=== PATIENT | female | born 2000 | race Caucasian/White ===

== ENCOUNTER 2025-08-22 23:26 | Emergency (ER) | payer OTHER, SELFPAY ==
--- OUTSIDE RECORDS SUMMARY | 2025-08-22 23:28 | XMS_ITS | Data Portability ---
Author Organization [facility] Address [address] [place] [address] Care Team Providers Care Supervisor Claims Name Role Phone CYNTHIA SAAVEDRA Primary Care Provider [phone] Assessment No assessment recorded. Plan of Treatment Reminders Order Date Submit Date Provider Last Modified By Organization Details Last Modified Time Details Appointments None recorded. Lab HUBER (antinuclea r antibodies) panel, serum 2022 023 [facility] (Lab), [address] [place], [address], 3 17:04:37 TSH, serum or plasma 2022 023 [facility] (Lab), [address] [place], [address], 3 17:04:35 thyrotropin ab, qualitative , serum 2022 023 [facility] (Lab), [address] [place], [address], 3 17:04:37 CBC w/ auto diff 2022 023 [facility] (Lab), [address] [place], [address], 3 17:04:34 CMP, serum or plasma 2022 023 [facility] (Lab), [address] [place], [address], 3 17:04:35 prolactin, serum 2022 023 [facility] (Lab), [address], [place], [address], 3 17:04:36 Referral None recorded. Procedures None recorded. Surgeries None recorded. Imaging US, obstetric, transvagina l [address], [address], [address], [place], [address], 5 20:37:14 US, obstetric, transvagina l [address] [facility] [address], [place], [address], 22:46:33 Medication Orders NuvaRing 0.12 mg-0.015 mg/24 hr vaginal 2022 023 [facility] [id number] [facility], [address], [place], [address], 15:15:08 Patient TargetsNo targets recorded. Patient InstructionsNo instructions recorded. Reason for Referral None Reported. Results Created Date Observation Date Name Description Value Unit Range Abnormal Flag Note LastModifiedBy Organization Detail LastModifiedTime 07/10/2007/10/2023 CBC W/DIF F WBC 8.7 10'3/ uL 3.6-10 .2 Not Available [facility] (Lab) [address], [place], [address], 07/19/2023 17:04:34 07/10/2007/10/2023 CBC W/DIF F RBC 5.27 10'6/ uL (based on docume nted legal sex) 4.10-5 .30 Not Available [facility] (Lab) [address], [place], [address], 07/19/2023 17:04:34 07/10/20 23 07/10/2023 CBC W/DIF F HGB 14.7 g/dL (based on docume nted legal sex) 11.9-1 5.8 Not Available [facility] (Lab) [address], [place], [address], 07/19/2023 17:04:34 07/10/20 23 07/10/2023 CBC W/DIF F HCT 46.0 % (based on docume nted legal sex) 37.4-4 8.3 Not Available [facility] (Lab) [address], [place], [address], 07/19/2023 17:04:34 07/10/20 23 07/10/2023 CBC W/DIF F MCV 87.3 fL 82.0-9 9.0 Not Available [facility] (Lab) [address], [place], [address], 07/19/2023 17:04:34 07/10/20 23 07/10/2023 CBC W/DIF F MCH 27.9 pg 27.0-3 3.0 Not Available [facility] (Lab) [address], [place], [address], 07/19/2023 17:04:34 07/10/20 23 07/10/2023 CBC W/DIF F MCHC 32.0 g/dL 32.0-3 6.0 Not Available [facility] (Lab) [address], [place], [address], 07/19/2023 17:04:34 07/10/20 23 07/10/2023 CBC W/DIF F RDW 13.5 % 11.0-1 5.0 Not Available [facility] (Lab) [address], [place], [address], 07/19/2023 17:04:34 07/10/20 23 07/10/2023 CBC W/DIF F plt 386 10'3/ uL 150-45 0 Not Available [facility] (Lab) [address] [facility], [place], [address], 07/19/2023 17:04:34 07/10/20 23 07/10/2023 CBC W/DIF F MPV 10.6 fL 9.8-12 .7 Not Available [facility] (Lab) [address] [facility], [place], [address], 07/19/2023 17:04:34 07/10/20 23 07/10/2023 CBC W/DIF F NRBC's 0.0 % 0 Not Available [facility] (Lab) [address] [facility], [place], [address], 07/19/2023 17:04:34 07/10/20 23 07/10/2023 CBC W/DIF F absolute NRBCs 0.0 10'3/ uL 0 Not Available [facility] (Lab) [address] [facility], [place], [address], 07/19/2023 17:04:34 07/10/20 23 07/10/2023 CBC W/DIF F neutrophils 59.6 % 37.0-7 2.0 Not Available [facility] (Lab) [address] [facility], [place], [address], 07/19/2023 17:04:34 07/10/20 23 07/10/2023 CBC W/DIF F lymphocytes 33.4 % 16.0-4 8.0 Not Available [facility] (Lab) [address] [facility], [place], [address], 07/19/2023 17:04:34 07/10/20 23 07/10/2023 CBC W/DIF F monocytes 5.2 % 4.0-14 .0 Not Available [facility] (Lab) [address] [facility], [place], [address], 07/19/2023 17:04:34 07/10/20 23 07/10/2023 CBC W/DIF F eosinophils 1.3 % 0.0-9. 0 Not Available [facility] (Lab) [address] [facility], [place], [address], 07/19/2023 17:04:34 07/10/20 23 07/10/2023 CBC W/DIF F basophils 0.2 % 0.0-2. 0 Not Available [facility] (Lab) [address] [facility], [place], [address], 07/19/2023 17:04:34 07/10/20 23 07/10/2023 CBC W/DIF F immature granulocytes 0.3 % no define d refere nce range Not Available [facility] (Lab) [address] [facility], [place], [address], 07/19/2023 17:04:34 07/10/20 23 07/10/2023 CBC W/DIF F absolute neutrophils 5.2 10'3/ uL 1.1-6. 0 Not Available [facility] (Lab) [address] [facility], [place], [address], 07/19/2023 17:04:34 07/10/20 23 07/10/2023 CBC W/DIF F absolute lymphocytes 2.9 10'3/ uL 0.7-3. 4 Not Available [facility] (Lab) [address] [facility], [place], [address], 07/19/2023 17:04:34 07/10/20 23 07/10/2023 CBC W/DIF F absolute monocytes 0.5 10'3/ uL 0.3-1. 0 Not Available [facility] (Lab) [address] [facility], [place], [address], 07/19/2023 17:04:34 07/10/20 23 07/10/2023 CBC W/DIF F absolute eosinophils 0.1 10'3/ uL 0.0-0. 6 Not Available [facility] (Lab) [address] [facility], [place], [address], 07/19/2023 17:04:34 07/10/20 23 07/10/2023 CBC W/DIF F absolute basophils 0.0 10'3/ uL 0.0-0. 1 Not Available [facility] (Lab) [address], [place], [address], 07/19/2023 17:04:34 07/10/20 23 07/10/2023 CBC W/DIF F absolute immature granulocytes 0.0 10'3/ uL 0.00-0 .10 023 3:45 AM: P indic ates parti al resul ts on a panel have been relea sed. Addit ional resul ts will follo w. 023 3:45 AM: This resul t has been final verif ied. No addit ional or rodriguez ed resul ts are expec pebbles. Not Available [facility] (Lab) [address] [facility], [place], [address], 07/19/2023 17:04:34 07/10/20 23 07/10/2023 CMP WITH BUN/C REAT RATIO sodium 136 mmol/ L 133-14 6 Not Available [facility] (Lab) [address] [facility], [place], [address], 07/19/2023 17:04:34 07/10/20 23 07/10/2023 CMP WITH BUN/C REAT RATIO potassium 4.1 mmol/ L 3.5-5. 1 Not Available [facility] (Lab) [address] [place], [address], 07/19/2023 17:04:34 07/10/20 23 07/10/2023 CMP WITH BUN/C REAT RATIO chloride 107 mmol/ L 98-107 Not Available [facility] (Lab) [address] [place], [address], 07/19/2023 17:04:34 07/10/20 23 07/10/2023 CMP WITH BUN/C REAT RATIO carbon dioxide 21 mmol/ L 21-31 Not Available [facility] (Lab) [address], [place], [address], 07/19/2023 17:04:34 07/10/20 23 07/10/2023 CMP WITH BUN/C REAT RATIO anion gap 8 mmol/ L 4-13 Not Available [facility] (Lab) [address] [facility], [place], [address], 07/19/2023 17:04:34 07/10/20 23 07/10/2023 CMP WITH BUN/C REAT RATIO blood urea nitrogen 12 mg/dL 7-25 Not Available [facility] (Lab) [address] [facility], [place], [address], 07/19/2023 17:04:34 07/10/20 23 07/10/2023 CMP WITH BUN/C REAT RATIO creatinine 0.86 mg/dL 0.60-1 .30 Not Available [facility] (Lab) [address] [facility], [place], [address], 07/19/2023 17:04:34 07/10/20 23 07/10/2023 CMP WITH BUN/C REAT RATIO egfrcr (CKD-epi 2020) >90 mL/mi n/1.7 3_m2 >=60 Not Available [facility] (Lab) [address] [facility], [place], [address], 07/19/2023 17:04:34 07/10/20 23 07/10/2023 CMP WITH BUN/C REAT RATIO BUN/creatini ne ratio 14.0 . 10.0-2 2.0 Not Available [facility] (Lab) [address] [facility], [place], [address], 07/19/2023 17:04:34 07/10/20 23 07/10/2023 CMP WITH BUN/C REAT RATIO calcium 9.0 mg/dL 8.3-10 .5 Not Available [facility] (Lab) [address] [facility], [place], [address], 07/19/2023 17:04:34 07/10/20 23 07/10/2023 CMP WITH BUN/C REAT RATIO glucose 93 mg/dL 70-100 Not Available [facility] (Lab) [address] [facility], [place], [address], 07/19/2023 17:04:34 07/10/20 23 07/10/2023 CMP WITH BUN/C REAT RATIO protein, total 7.2 g/dL 6.4-8. 3 Not Available [facility] (Lab) [address], [place], [address], 07/19/2023 17:04:34 07/10/20 23 07/10/2023 CMP WITH BUN/C REAT RATIO albumin 4.3 g/dL 3.5-5. 0 Not Available [facility] (Lab) [address], [place], [address], 07/19/2023 17:04:34 07/10/20 23 07/10/2023 CMP WITH BUN/C REAT RATIO ALT 12 units /L 9-43 Not Available [facility] (Lab) [address] [facility], [place], [address], 07/19/2023 17:04:34 07/10/20 23 07/10/2023 CMP WITH BUN/C REAT RATIO alkaline phosphatase 58 units /L 34-104 Not Available [facility] (Lab) [address], [place], [address], 07/19/2023 17:04:34 07/10/20 23 07/10/2023 CMP WITH BUN/C REAT RATIO AST 13 units /L 13-39 Not Available [facility] (Lab) [address] [facility], [place], [address], 07/19/2023 17:04:34 07/10/20 23 07/10/2023 CMP WITH BUN/C REAT RATIO bilirubin, total 0.4 mg/dL 0.2-1. 2 Not Available [facility] (Lab) [address] [place], [address], 07/19/2023 17:04:34 07/10/20 23 07/10/2023 TSH, REFLE X FREE T4 TSH 2.43 uIU/m L 0.30-5 .33 Not Available [facility] (Lab) [address] [facility], [place], [address], 07/19/2023 17:04:35 07/10/20 23 07/10/2023 PROLA CTIN prolactin, total 25.80 NG/mL 4.79-2 3.30 high This assay was perfo rmed using [employer] n reage nts and test kits. Value s obtai jame with other assay metho ds or kits canno t be used inter rodriguez eably . Not Available [facility] (Lab) [address] [facility], [place], [address], 07/19/2023 17:04:36 07/10/20 23 07/10/2023 DNA (DS) ANTIB ALEJANDRO dsdna antibody 3 IU/mL 0-4 Not Available [facility] (Lab) [address] [facility], [place], [address], 07/19/2023 17:04:36 07/10/20 23 07/10/2023 DNA (DS) ANTIB ALEJANDRO dsdna antibody interpretati on Negati ve negati ve Not Available [facility] (Lab) [address] [facility], [place], [address], 07/19/2023 17:04:36 07/10/20 23 07/10/2023 HUBER SCREE N / REFLE X TITER / DS-DN A anti-nuclear antibody Positi ve negati ve abnormal The HUBER scree n is posit jovani. Addit ional testi ng for DS-DN A Antib alejandro to follo w. HUBER titer s and patte rns are perfo rmed using an immun ofluo resce nce assay techn ology . Follo w up testi ng for posit jovani speci mens, if requi red, is perfo rmed using multi plex bead techn ology . Not Available [facility] (Lab) [address], [place], [address], 07/19/2023 17:04:37 07/10/20 23 07/10/2023 HUBER SCREE N / REFLE X TITER / DS-DN A HUBER titer 1:320 (none) abnormal Not Available [facility] (Lab) [address] [facility], [place], [address], 07/19/2023 17:04:37 07/10/20 23 07/10/2023 HUBER SCREE N / REFLE X TITER / DS-DN A HUBER pattern Diffus e (none) abnormal May be sugge stive of Syste cole Lupus Eryth emato saurabh. Not Available [facility] (Lab) [address], [place], [address], 07/19/2023 17:04:37 07/10/20 23 07/10/2023 TSH ANTIB ALEJANDRO TSH antibody NEGATI VE negati ve This test was devel oped and its kate tical perfo rmanc e vi cteri stics have been deter mined by [facility] Anthony maciel [place]i t[place] . It has not been clear ed or appro niya by FDA. This assay has been valid ated pursu ant to the CLIA regul ation s and is used for clini brigido purpo ses. Perfo rming Organ izati on Infor matmel n: Site ID: [id number] Name: [facility]/Real matthieu C-S an [place] , Addre ss: [id number] [facility] [place] [address] Direc tor: Norah iverson MD,Ph D,URI Not Available [facility] (Lab) [address] [facility], [place], [address], 07/19/2023 17:04:37 12/19/1912/19/2024 TYPE/ RH/SC REEN ABO/Rh type O POS Not Available [facility] (Lab) [address] [facility], [place], [address], 12/21/2024 01:31:30 12/19/19 25 12/19/2024 TYPE/ RH/SC REEN antibody screen NEG Not Available [facility] (Lab) [address], [place], [address], 12/21/2024 01:31:30 12/19/1912/19/2024 TYPE/ RH/SC REEN exp date 2024 23:59 Not Available [facility] (Lab) [address] [facility], [place], [address], 12/21/2024 01:31:30 12/19/1912/19/2024 BHCG, QUANT ITATI VE B-HCG 23485. 0 mIU/m L 0.0-4. 9 high This assay was perfo rmed using [employer] n reage nts and test kits. Value s obtai jame with other assay metho ds or kits canno t be used inter rodriguez eably . Refer ence Range s: Non-p regna nt, preme nopau joanne women : 0.0-4 .9 mIU/m L Postm enopa usal women : 0.0-7 .0 mIU/m L Martha l Pregn di: Gesta dania l Age bHCG Conc. - mIU/m L 3 Weeks 5.8 - 71.7 4 Weeks 9.5 - 750 5 Weeks 217-7 138 6 Weeks 158 - 31,79 5 7 Weeks 3,697 - 162,5 63 8 Weeks 32,06 5 - 149,5 71 9 Weeks 63,80 3 - 151,4 10 10 Weeks 46,50 9 - 186,9 77 12 Weeks 27,83 2 - 210,6 12 14 Weeks 13,95 0 - 62,53 0 15 Weeks 12,03 9 - 70,97 1 16 Weeks 9,040 - 56,45 1 17 Weeks 8,175 - 55,86 8 18 Weeks 8,099 - 58,17 6 Not Available [facility] (Lab) [address], [place], [address], 12/21/2024 01:31:31 12/22/19 25 12/22/2024 BHCG, QUANT ITATI VE B-HCG 85461. 0 mIU/m L 0.0-4. 9 high This assay was perfo rmed using [employer] n reage nts and test kits. Value s obtai jame with other assay metho ds or kits canno t be used inter [facility] . Refer ence Range s: Non-p regna nt, preme nopau joanne women : 0.0-4 .9 mIU/m L Postm enopa usal women : 0.0-7 .0 mIU/m L Martha l Pregn di: Gesta dania l Age bHCG Conc. - mIU/m L 3 Weeks 5.8 - 71.7 4 Weeks 9.5 - 750 5 Weeks 217-7 138 6 Weeks 158 - 31,79 5 7 Weeks 3,697 - 162,5 63 8 Weeks 32,06 5 - 149,5 71 9 Weeks 63,80 3 - 151,4 10 10 Weeks 46,50 9 - 186,9 77 12 Weeks 27,83 2 - 210,6 12 14 Weeks 13,95 0 - 62,53 0 15 Weeks 12,03 9 - 70,97 1 16 Weeks 9,040 - 56,45 1 17 Weeks 8,175 - 55,86 8 18 Weeks 8,099 - 58,17 6 Not Available [facility] (Lab) [address] [facility], [place], [address], 12/23/2024 05:22:29 12/24/19 25 12/24/2024 BHCG, QUANT ITATI VE B-HCG 55674. 0 mIU/m L 0.0-4. 9 high This assay was perfo rmed using [employer] n reage nts and test kits. Value s obtai jame with other assay metho ds or kits canno t be used inter rodriguez eay . Refer ence Range s: Non-p regna nt, preme nopau joanne women : 0.0-4 .9 mIU/m L Postm enopa usal women : 0.0-7 .0 mIU/m L Martha l Pregn di: Gesta dania l [facility]. - mIU/m L 3 Weeks 5.8 - 71.7 4 Weeks 9.5 - 750 5 Weeks 217-7 138 6 Weeks 158 - 31,79 5 7 Weeks 3,697 - 162,5 63 8 Weeks 32,06 5 - 149,5 71 9 Weeks 63,80 3 - 151,4 10 10 Weeks 46,50 9 - 186,9 77 12 Weeks 27,83 2 - 210,6 12 14 Weeks 13,95 0 - 62,53 0 15 Weeks 12,03 9 - 70,97 1 16 Weeks 9,040 - 56,45 1 17 Weeks 8,175 - 55,86 8 18 Weeks 8,099 - 58,17 6 Not Available [facility] (Lab) [address], [place], [address], 12/28/2024 23:54:43 12/19/19 25 12/19/2024 US, lisa tric, trans vagin al No observ ation record ed. [facility] [address], [place], [address], 12/19/2024 17:11:00 12/19/19 25 12/19/2024 US, trans vagin al No observ ation record ed. [email or web address], [place], [address], 12/23/2024 09:27:47 12/25/19 25 12/25/2024 US, trans vagin al No observ ation record ed. [email or web address], [place], [address], 12/25/2024 20:25:29 12/25/19 25 12/25/2024 US, lisa tric, trans vagin al No observ ation record ed. [facility] [address], [place], [address], 12/25/2024 19:12:17 Result Notes None recorded. Problems Name Problem SNOMED Code Status Onset Date Resolution Date Notes Provider Name and Address Organization Details Recorded Time Procedur e by method Completed 201603/01/2022 Encounter for other general counselin g and advice on contracep tion;Marco A rded Elsewhere : No Locati on: [facility] So urce: EHR Chron ic: N Practic e ID: [id number] Bill able Time: 03:30:00 PM Magda Sauceda [facility] 2 14:13:[address] Concept Completed 201603/01/2022 Encntr for routine child health exam w/o abnormal findings; Recorded Elsewhere : No Locati on: [facility] So urce: EHR Chron ic: N Practic e ID: [id number] Bill able Time: 03:30:00 PM Magda Sauceda [facility] 2 14:13:50 Uses combined oral contrace ption [id number] Completed 201603/01/2022 Encounter for surveilla nce of contracep tive pills;Rec orded Elsewhere : No Locati on: [facility] So urce: EHR Chron ic: N Practic e ID: [id number] Bill able Time: 05:00:00 PM Magda Sauceda [facility] 2 14:13:50 Ornithos is [id number] Completed 201803/01/2022 Chlamydia psittaci infection s;Recorde d Elsewhere : No Locati on: [facility] So urce: EHR Chron ic: N Practic e ID: [id number] Bill able Time: 04:51:07 PM Magda Sauceda [facility] 2 14:13:50 Pregnanc y test negative [id number] Completed 201903/01/2022 Encounter for test, result negative; Recorded Elsewhere : No Locati on: [facility] So urce: EHR Chron ic: N Practic e ID: [id number] Bill able Time: 03:15:00 PM Magda Sauceda [facility] 2 14:13:[address] Concept Completed 201903/01/2022 Encntr for chemist water purification exam (general) (routine) w/o abn findings; Recorded Elsewhere : No Locati on: [facility] So urce: EHR Chron ic: N Practic e ID: [id number] Bill able Time: 03:15:00 PM Magda Sauceda [facility] 2 14:13:50 Insertio n of intraute rine contrace ptive device Completed 201903/01/2022 Encounter for insertion of intrauter ine contracep tive device;Re corded Elsewhere : No Locati on: [facility] So urce: EHR Chron ic: N Practic e ID: [id number] Bill able Time: 03:15:00 PM Magda Sauceda [facility] 2 14:13:50 Contrace ptive sheath status [id number] Completed 201903/01/2022 Encounter for initial prescript ion of other contracep tives;Rec orded Elsewhere : No Locati on: [facility] So urce: EHR Chron ic: N Practic e ID: [id number] Bill able Time: 03:15:00 PM Magda Sauceda [facility] 2 14:13:[address] Concept Completed 201903/01/2022 Encounter for other contracep tive managemen t;Practic e ID: [id number] [facility] 2 14:13:50 Problem Notes None recorded. Procedures Surgical History Date Name Laterality Status Provider Name and Address Organization Details Recorded Time 3 Control Implant Removal completed TUYET Donaldson- [address], [place], [address], [facility] 04/17/2023 17:36:12 Imaging Results None recorded. Procedure Notes None recorded. Medical Equipment None Reported. Allergies Allergen ID Allergen Name Allergen Category Reaction Reaction Severity Criticality Documentation Date Start Date Code Code System Note Provider Name and Address Organization Details Recorded Time 43095 Product containin g penicilli n (product) medicatio n Not available Not available Not available 10/22/2020 15193 8001 SNOMED Comme nt: [facility]at [facility]; Not Available [facility] 14:20:51 Medications Name Sig Start Date Stop Date Status Note LastModified by Organization Details LastModified Time azithromy christiano 250 mg tablet TAKE 2 TABLETS BY MOUTH TODAY, THEN TAKE 1 TABLET DAILY FOR 4 DAYS 03/02 completed Not Available Not Available Not Available misoprost ol 200 mcg tablet INSERT 5 TABS INTO VAGINA ONCE active Not Available Not Available No t Available Cytotec [address] 1 tablet vaginall y at HS the night prior to IUD placemen t. 04/17 completed Not Available Not Available Not Available ibuprofen 600 mg tablet Take 600mg Tablet PO 1hr prior to IUD placemen t; then, q8hrs PO x 24-48 hrs with food. 04/17 completed Not Available Not Available Not Available azithromy christiano 500 mg tablet take 2 tablet by oral route once 03/02 completed Prescrib ed Elsewher e: No [facility] By: carlos Strauss untgiovanni DateTime : 10/30/20 08:24:57 AM Not Available Not Available Not Available 11/24 () 1 mg-20 mcg tablet take 1 tablet by oral route every day 03/02 completed Prescrib ed Elsewher e: No Locat ion: [facility]ify By: chris prieto DateTime : 10/15/20 12:02:21 PM Not Available Not Available Not Available Annovera 0.15 mg-0.013 mg/24 hr vaginal ring 07/10 completed Not Available Not Available Not Available EluRyng 0.12 mg-0.015 mg/24 hr vaginal ring INSERT 1 VAGINAL RING EVERY MONTH BY VAGINAL ROUTE 12/18 completed Not Available Not Available Not Available Twirla 120 mcg-30 mcg/24 hr transderm al patch APPLY 1 PATCH EVERY WEEK BY TRANSDER MAL ROUTE DIRECTED FOR 21 DAYS 07/18 /2023 completed Not Available Not Available Not Available Vitals Date Recorded Body height Body mass index (BMI) Body weight Systolic And Diastolic Provider Name and Address Organization Details Last Updated DateTime 12/19/2024 157.48 cm 39 kg/m2 62302.17 g 133/85 mm[Hg] Kasandra Caballero [facility] 12/19/2024 15:29:38 Date Recorded Body height Body mass index (BMI) Body weight Systolic And Diastolic Provider Name and Address Organization Details Last Updated DateTime 07/10/2023 157.48 cm 37.5 kg/m2 17012.44 g 108/75 mm[Hg] Melvi Kade [facility] 07/10/2023 15:02:46 Social History Question Answer Notes LastModified by Organizat ion Details LastModified Time Tobacco Smoking Status Never Smoker Magda Sauceda [facility] 03/02/2022 13:48:24 Do You Have An Advance Directive? No Information n ot available 03/02/2022 Are You Blind Or Do You Have Difficulty Seeing? No Information n ot available 03/01/2022 What Is Your Level Of Caffeine Consumption? Occasional Information not available 03/01/2022 In The 14 Days Before Symptom Onset, Have You Had Close Contact With A Laboratory-confirm ed COVID-19 While That Case Was Ill? No Information n ot available 03/02/2022 In The 14 Days Before Symptom Onset, Have You Had Close Contact With A Person Who Is Under Investigation For COVID-19 While That Person Was Ill? No Information not available 03/02/2022 Have You Been To An Area Known To Be High Risk For COVID-19? No Information not available 03/02/2022 Are You Deaf Or Do You Have Serious Difficulty Hearing? No Information not available 03/01/2022 What Type Of Diet Are You Following? REGULAR Information n ot available 03/01/2022 What Is The Highest Grade Or Level Of School You Have Completed Or The Highest Degree You Have Received? [id number] Information not available 03/02/2022 Are There Any Guns Present In Your Home? No Information not available 03/02/2022 Do You Use Protection During Sex? No Information not available 03/02/2022 Do You Use Your Seat Belt Or Car Seat Routinely? Yes Information not available 03/01/2022 Do You Have Smoke And Carbon Monoxide Detectors In Your Home? Yes Information not available 03/01/2022 How Much Tobacco Do You Smoke? No Information not available 03/02/2022 Do You Use Sunscreen Routinely? Yes Information not available 03/01/2022 Have You Used IV Drugs? No Information not available 03/02/2022 Do You Have Difficulty Walking Or Climbing Stairs? No Information not available 03/02/2022 Sex: Unknown Functional Status Question Answer Note LastModified by Organizat ion Details LastModified Time Do you use any illicit or recreational drugs? Yes Information not available 03/02/2022 What is your level of alcohol consumption? Occasional Information not available 03/02/2022 Are you able to walk independently without assistance or assistive devices? YESWOREST Information not available 03/01/2022 Are you able to care for yourself independently? 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 No Information not available 03/02/2022 What is your exercise level? Moderate Information not available 03/01/2022 Mental Status Question Answer Note LastModified by Organization D etails LastModified Time Do you feel stressed (tense, restless, nervous, or anxious, or unable to sleep at night)? [id number] Information not available 03/01/2022 Family History Relationship Description Onset Age of this Age Resolved Age Notes LastModified by Organization Details LastModified Time Maternal Grandfather Diabetes mellitus Not available 2021 16:01:47 Maternal Grandfather Hypercholest erolemia Not available 2021 16:01:59 Maternal Grandfather Heart disease Not available 2021 16:02:05 Paternal Grandmother Disorder of thyroid gland Not available 2021 16:02:18 Medical History Condition Response Allergies (Food, seasonal, environmental ) N Other N Breast Cancer N Drug/Latex Allergies/Reactions N Blood Transfusion N Dermatologic Disorders N Lung Disease N Defects or Inherited Disease N Breast Problem N Gestational Diabetes N Hematologic disorders N Anesthesia Complications N History of STI N Deep Vein Thrombosis N Polycystic ovary syndrome N Anxiety Disorder N Autoimmune disease N Arthritis N Infertility N Polyps N Acid Reflux (GERD) N History of abnormal pap N Cancer N Stroke N Varicosities N Neurologic/Epilepsy N Endometriosis N High Cholesterol N Headaches N Fibromyalgia N Kidney Disease N Heart Problems N Kidney or Bladder Problems N Thyroid Problems N GI Problems N Eating Disorder N Anemia N Art (IVF or FET) N Psychiatric Illness N Ovarian Cancer N Diabetes N Pulmonary (TB, Asthma) N Hepatitis/Liver Disease N No Past Medical History N Eczema N Urinary Tract Infection N Abuse/Domestic Violence N Asthma N Trauma/Violence N Depression/ depression N Heart Disease N Pre-Eclampsia N Hypertension N Osteoporosis N Thrombophilias N Gynecological History Statement/Question Response Flow Moderate Date of LMP 10/20/2024 N Was last menstrual period normal Y STIs/STDs Y Date of control 12/07/2019 Date of Last Colonoscopy Desired Control Method N/A On BCP's at Conception? N HPV Vaccine Y Duration of Flow (days) 4 Current Control Method None Are cycles usually normal N Frequency of Cycle (Q days) 22 Sexually Active? Y Menses Monthly Y Date of DEXA bone scan Age of first menstrual cycle 13 Date of Last Pap Smear Sexual Problems? N LMP Definite N Obstetrics History GPAL:G 0 P 0 0 0 0 Type Value Living 0 Total 0 Past Encounters Encounter ID Performer Location Encounter Start Date Encounter Closed Date Diagnosis/Indication Diagnosis SNOMED-CT Code Diagnosis ICD10 Code Diagnosis IMO Codes Diagnosis Note [id number] Aspen Roberts [facility] [address] [address] 03/02/2022 13:32:59 03/02/2022 14:31:05 Contraception care management 633288433 Z30.9 Today we discussed IUD's. Discussed all control options and pt would like mirena IUD. I have discussed in detail all risks and benefits including risk of infection and perforatio n. Aware of need to verify with insurance device coverage. Literature given. All questions answered to patient satisfacti on.She will have her current nexplanon removed & Mirena IUD placed at the visit scheduled. No need to be on a cycle since nexplanon not & inplace now. H/O's givenMedic ation regimen reviewedRx 's sent Time spent in visit is a total of 30 mins with at least 50% of visit consisting of counseling and review of plan of care. [id number] Aspen Roberts [facility] [address],[place] [address] 04/17/2023 15:58:51 04/18/2023 10:19:06 Removal of subcutaneous contraceptive [id number] Z30.46 Removal site was cleansed with betadine and 3cc of lidocaine used for anesthesia . Device was removed in normal fashion without difficulty . Steri stips and pressure bandage placed. Contracept ion care management [id number] Z30.9 Discussed all control options in great detail. Pt would like to start xulane patch. She is aware of the risks and benefits. Informed her it may not be as effective for contracept ion since her weight is over 198 lbs. She does not have any medical condition that is contraindi cated with the use of estrogen containing control. Pt will place the patch on the first sunday following the start of her period and then replace weekly x 2 (total of 3 patches over 3 weeks) and week 4 no patch. She is aware it is not effective for control the first month and may be less effective d/t her weight. She is also aware that she will need to check placement daily to ensure it has not come off. Encouraged use of condoms as the nuvaring does not protect against STD's. Will return in 3 months for med check. Consent was read and signed. Pt verbalized understand smileySaturnino Moore has a savings card if it's needed; if not covered by insurance at a good avendaño then will send Xulane same instructio ns. [id number] Aspen Roberts [facility] [address],[place] [address] 05/22/2023 16:10:45 05/22/2023 16:34:13 Contraception care management [id number] Z30.9 Discussed all control options in great detail. Pt would like to start ANNOVERA. She is aware of the risks and benefits. She does not have any medical condition that is contraindi cated with the use of estrogen containing control. Pt will place the Annovera on the first sunday following the start of her period. She is aware it is not effective for control the first month. She is also aware of the importance of timely insertion and removal. Encouraged use of condoms as the nuvaring does not protect against STD's. Will return in 3 months for med check. Consent was read and signed. Pt verbalized understand ing. NOTE: If Annovera is not covered then she would like to try Nuvaring. Instructio ns:ANNOVER A is inserted for 21 continuous days and removed for 7 days for one year (13 cycles). Using thumb and index finger, squeeze the ANNOVERA ring into a narrow oval shape. The ANNOVERA ring can be inserted while lying down, squatting, or standing with 1 leg up. [email or web address] clifford/pdf/st arting-frandy overa-inst ructions-A NVA-. pdf Time spent in visit is a total of 15 mins with at least 50% of visit consisting of counseling and review of plan of care. [id number] TUYET [facility] [address] [address] 07/10/2023 14:55:42 07/10/2023 15:17:25 Loss of scalp hair [id number] L65.9 Small dime size spot top of scalp near hair line with loss of hair.Kayla hNo other issues in surroundin g area.We will do some lab work & monitor for nowFamily Hx of autoimmune issues. Contracept ion care management [id number] Z30.9 Patient is here today for a medicaton check of control. She voices goals of therapy have been met with use of this therapy. She denies neg side effects. She is eating, drinking, sleeping well; moods are stable & periods are well regulated. Wishes to continue this method of BC. Appropriat e to continue this medication . Time spent in visit is a total of 20 mins with at least 50% of visit consisting of counseling and review of plan of care. [id number] Balaji Blanton MD [place] [address] [address] 12/19/2024 14:55:54 12/19/2024 15:56:19 Threatened miscarriage [id number] O20.0 Z3A.01 [id number] [facility] [address] [address] 12/19/2024 14:56:18 12/19/2024 15:46:42 Threatened miscarriage [id number] O20.0 discussed early IUP vs miscarriag eif any concerns over the weekend, emergency lineplan labs and blood type today rpt sunday, if increase plan rpt [id number] Balaji Blanton MD [place] [address] [address] 12/25/2024 17:24:35 12/26/2024 06:10:59 Missed miscarriage [id number] Z3A.01 [id number] Balaji Blanton MD [place] [address],[facility] [place] [address] 12/25/2024 18:37:58 12/26/2024 06:06:45 Missed miscarriage [id number] O02.1 Health Concerns Section Related Observation LastModified by Organization Detai ls LastModified Time None Recorded Concern Status LastModified by Organization Details LastModified Time None Recorded Advance Directives Directive N: Payers Insurance Date Sequence Insurance Name Policy Number Policy Arias Covered Member ID Arias Member ID Guarantor Name 03/27/2025 1 [employer] [facility] Raul Pablo [id number] Yancy Pablo 02/27/2022 1 [employer] - [employer] (POS II) James Samy [id number] Yancy Pablo Notes Date Note Type Note Provider Name and Address Organization Details Recorded Time 07/10/2023 text/html ROS as noted in the HPI Here today for medication check of Nuvaring. Aspen Roberts, [facility]- [address], [place], [address], [facility] 07/10/2023 15:16:37 12/19/2024 text/html ROS as noted in the HPI pt here for +UPT, US done, sac 7 w 2 d and FP 6 w 2 daysno previous US or labs, unknown blood typeno complaints of cramping or bleeding Orin Laura, ZION [address], [place], [address], [facility] 12/19/2024 15:46:10 12/25/2024 text/html This patient is a 24 female who presents for [missed/threatene d/incomplete] discussed the etiology, frequency, natural history, and treatment of this condition. Spent more than 30 minutes on her care, talking about the above, as well as, her history, the particular findings of her case, and detail of her the treatment options. We discussed the risk benefits of each option. She understands the risk include infection and hemorrhage. She understands a D&C also holds the risk of injury. She understands that waiting can result in a septic that is even more difficult to treat. We talked about signs and symptoms of infection. Missed miscarriage. She has elected to treat with Cytotec. She was given instructions, precautions, risks, benefits, and alternatives. Balaji Blanton MD [address], [place], [address], [facility] 12/25/2024 18:51:03 OBGyn Episode No OBEpisode recorded.
--- OUTSIDE RECORDS SUMMARY | 2025-08-22 23:28 | XMS_ITS | Encounter Summary ---
Author Organization [facility] Address [facility] [place] [address] Care Team Providers Care Protective Services Officer Name Role Phone Unavailable Primary Care Provider Unavailabl e Encounter Details Date Type Department Care Team (Late st Contact Info) Description 08/14/2018 Lab Requisition [facility] Care DermPath Lab [address] [facility], [place] [address] Tanja Han MD [address] [facility] [address] [place] [address] Social History Tobacco Use Types Packs/Day Years Used Date Smoking Tobacco: Never Assessed Comments Unknown Sex and Gender Information Value Date Recorded Sex Assigned at Not on file Legal Sex Female 3:29 PM CDT Gender Identity Not on file Sexual Orientation Not on file documented as of this encounter Plan of Treatment Not on file documented as of this encounter Procedures Procedure Name Priority Date/Time Associated Diagnosis Comments DERMATOPATH TECHNICAL REPORT Routine 08/12/2018 12:00 AM CDT documented in this encounter Results * DERMATOPATH TECHNICAL REPORT (08/12/2018 12:00 AM CDT) Case Report Dermatopathology Report Case: [id number] Authorizing Provider: Tanja Han MD Collected: 08/12/2018 12:00 AM Pathologist: Ava Noguera MD Received: 08/14/2018 06:05 AM Specimen: Skin, right abd 8 12:50 PM CDT DERMATOPATHOLOGY LABORATORY Clinical History R/O nevus, growing, brown papule. Check margins. 8 12:50 PM CDT DERMATOPATHOLOGY LABORATORY Gross Description Specimen A: Received is one formalin filled container labeled with the patient's name and designated right abd. The specimen consists of a shave measuring [id number]. The margin is inked green. Jar 0. [facility] Dermatopathology Laboratory performed the technical component only. 12:50 PM CDT DERMATOPATHOLOGY LABORATORY Embedded Images 12:50 PM CDT DERMATOPATHOLOGY LABORATORY DISCLAIMER An external and internal positive and negative controls are appropriate for the histochemical, immunohistochemical and immunofluorescence stain(s) in this case (if any), except where stated explicitly. The performance characteristics of the stain(s) cited in this report were developed and its performance characteristic determined by the Dermatopathology Laboratory at [facility]. These tests need not be, and therefore are not, approved by the [place] Food and Drug Administration. The tests are used for clinical purposes. 12:50 PM CDT DERMATOPATHOLOGY LABORATORY at 1250 CDT Pathology/Cytolog y TISSUE SPECIMEN FROM SKIN / Unknown 08/12/2018 08/14/2018 6:05 AM CDT us Tanja Han MD LAB - PATHOLOGY/CYTOLOGY ORD ERABLES Final Result DERMATOPATHOLOGY LABORATORY [facility] - Department of Dermatology [address] [facility] [place] [address], [facility] [phone] documented in this encounter Visit Diagnoses Not on filedocumented in this encounter
--- OUTSIDE RECORDS SUMMARY | 2025-08-22 23:28 | XMS_ITS | Clinical Summary ---
Author Organization [address] [address] Care Team Providers Care Engineer Specialist Name Role Phone Unknown, Notinfile Primary Care Provider Unavail able Allergies Active Allergy Reactions Criticality Noted Date Comments Penicillins Unknown 02/08/2024 Medications No known medications Active Problems No known active problems Encounters Date Type Department Care Team Description 08/11/2025 3:45 PM CDT Office Visit [facility] at [address] [address] Rosamaria Rivera NP Dizziness (Primary Dx); Blurry vision; Other constipation from Last 3 Months Social History Tobacco Use Types Packs/Day Years Used Date Smoking Tobacco: Never Assessed Comments Unknown Sex and Gender Information Value Date Recorded Sex Assigned at Not on file Legal Sex Female 10:44 AM CDT Gender Identity Not on file Sexual Orientation Not on file Last Filed Vital Signs Vital Sign Reading Time Taken Comments Blood Pressure 105/73 08/11/2025 4:13 PM CDT sta nding up Pulse 72 08/11/2025 4:13 PM CDT Temperature 36 C (96.8 F) 08/11/2025 3:56 PM CDT Respiratory Rate 16 08/11/2025 3:56 PM CDT Oxygen Saturation 99% 08/11/2025 3:56 PM CDT Inhaled Oxygen Concentration - - Weight 85.7 kg (189 lb) 08/11/2025 3:56 PM CDT Height - - Body Mass Index - - Plan of Treatment Health Maintenance Due Date Last Done Comments Cervical Cancer Screening 2001 Depression Screening 2001 Hepatitis C Screening 2001 Regular Well Visit/Exam 18-64 2019 DTaP/Tdap/Td Vaccine (7 - Td or Tdap) 03/17/2023 03/17/2013, 01/21/2007, 04/07/2003, Additional history exists Covid-19 Vaccine (2024- 6 season) 2025 02/26/2021, 02/04/2021 Influenza Vaccine (#1) 2025 , 07/29/2019, 07/13/2017 Hepatitis B Screening Completed 12/30/2002 , 02/24/2002, 2001 Pneumococcal vaccine <65 Completed 003, 06/30/2002, 04/28/2002, Additional history exists Varicella Vaccines Completed 01/21/2007, 04/07/2003 HPV Vaccines Completed 12/16/2013, 05/06, 03/17/2013 Meningococcal B Vaccine Completed 08/16/2020, 05/26 Procedures Procedure Name Priority Date/Time Associated Diagnosis Comments POCT HCG, URINE Routine 08/11/2025 4:31 PM CDT Dizziness from Last 3 Months Results * POCT hCG, urine (08/11/2025 4:31 PM CDT) HCG, ur, POC Negative Negative Lot Number [id number] QC Backgroud Clear Acceptable QC Control Line Acceptable Urine 08/11/2025 4:31 PM CDT Rosamaria Rivera NP POINT OF CARE TEST ORDERABLES Final Result from Last 3 Months Insurance [facility] CMR Care Teams Engineer Specialist Relationship Specialty Start Date End Date Unknown, Notinfile PCP - General 08/11/25
[2025-08-22 23:29] VITALS: BP 137/92; PULSE 102; RESP 18; TEMP 36.9; O2SAT 100
--- OUTSIDE RECORDS SUMMARY | 2025-08-23 01:49 | XMS_ITS | Clinical Summary ---
Author Organization [address] [address] Care Team Providers Care Fountain Pen Nibs Inspector Name Role Phone Unknown, Notinfile Primary Care Provider Unavail able Allergies Active Allergy Reactions Criticality Noted Date Comments Penicillins Unknown 02/08/2024 Medications No known medications Active Problems No known active problems Encounters Date Type Department Care Team Description 08/11/2025 3:45 PM CDT Office Visit [facility] at [address] [address] Rosamaria Rivera NP Dizziness (Primary [...] HCG, ur, POC Negative Negative Lot Number [id number] QC Backgroud Clear Acceptable QC Control Line Acceptable Urine 08/11/2025 4:31 PM CDT Rosamaria Rivera NP POINT OF CARE TEST ORDERABLES Final Result from Last 3 Months Insurance [facility] CMR Care Teams Fountain Pen Nibs Inspector Relationship Specialty Start Date End Date Unknown, Notinfile PCP - General 08/11/25
--- OUTSIDE RECORDS SUMMARY | 2025-08-23 01:49 | XMS_ITS | Clinical Summary ---
Author Organization [facility] Address [address] [place] [address] Care Team Providers Care Shift Engineer Name Role Phone Unavailable Primary Care Provider Unavailabl e Source Comments [facility],non-owned Affiliates and Associated Physician Practices is amultiple site organization consisting of ambulatory clinics and hospital sitesin [place], [place], [place] and [place]. This disclosure is being madepursuant to the Care Everywhere program and may not contain all information available regarding this patient. Last updated 18.[facility] [employer] Allergies Active Allergy Reactions Criticality Noted Date Comments Penicillins Unknown 02/08/2024 Medications * Be aware that medications may not be up to date on this document. Alwaysverify current medications with the patient. EluRyng 0.12-0.015 MG/24HR vaginal ring INSERT 1 VAGINAL RING EVERY MONTH BY VAGINAL ROUTE 01/23/2024 Active Social History Tobacco Use Types Packs/Day Years Used Date Smoking Tobacco: Never Smokeless Tobacco: Never Tobacco Cessation:Counseling Given: Not Answered Alcohol Use Standard Drinks/Week Comments Yes 0 (1 standard drink = 0.6 oz pur e alcohol) Comments No Sex and Gender Information Value Date Recorded Sex Assigned at Not on file Legal Sex Female 3:29 PM CDT Gender Identity Not on file Sexual Orientation Not on file Last Filed Vital Signs Vital Sign Reading Time Taken Comments Blood Pressure 137/83 02/08/2024 11:45 AM CDT Pulse 90 02/08/2024 11:45 AM CDT Temperature 36.1 C (97 F) 02/08/2024 11:45 AM CDT Respiratory Rate - - Oxygen Saturation 100% 02/08/2024 11:45 AM CDT Inhaled Oxygen Concentration - - Weight 89.5 kg (197 lb 4.8 oz) 02/08/2024 11:45 AM CDT Height 160 cm (5' 3) 02/08/2024 11:45 AM CDT Body Mass Index 34.95 02/08/2024 11:45 AM CDT Plan of Treatment Health Maintenance Due Date Last Done Comments HIV SCREENING 2016 HPV VACCINE (1 - 3-dose series) 2016 CHLAMYDIA/GONORRHEA SCREENING 2017 MENINGOCOCCAL (Group B) VACC INE SHARED DECISION-MAKING (1 of 2 - Standard) 2017 HEPATITIS C SCREENING 12/16/2019 DTAP/TDAP/TD VACCINES (1 - Tdap) 2020 HEPATITIS B VACCINE (1 of 3 - 19+ 3-dose series) 2020 PAP SMEAR 2022 DEPRESSION SCREENING 11/05/2024 COVID-19 VACCINE (1 - 2023-2 5 season) 2025 INFLUENZA VACCINE (#1) 2025 ZOSTER VACCINE (1 of 2) 2051 HIB VACCINE Aged Out No longer eligi ble based on patient's age to complete this topic MENINGOCOCCAL GROUPS A/C/Y/W VACCINE Aged Out No longer eligible b ased on patient's age to complete this topic PNEUMOCOCCAL VACCINE Aged Out No long er eligible based on patient's age to complete this topic Insurance AETNA AET T AETNA AETNA AETNA AETNA AETNA
--- OUTSIDE RECORDS SUMMARY | 2025-08-23 01:49 | XMS_ITS | Encounter Summary ---
Author Organization [facility] Address [facility] [place] [address] Care Team Providers Care Ornamenter Name Role Phone Unavailable Primary Care Provider Unavailabl e Encounter Details Date Type Department Care Team (Late st Contact Info) Description 08/14/2018 Lab Requisition [facility] Care DermPath Lab [address] [facility] [place] [address] Tanja Han MD [address] [facility] [address] DEPT [place] [address] Social History Tobacco Use Types Packs/Day Years [...] AM CDT) Case Report Dermatopathology Report Case: [id number] Authorizing Provider: Tanja Han MD Collected: 08/12/2018 [...] The specimen consists of a shave measuring [id number]. The margin is inked green. Jar 0. [facility] Dermatopathology Laboratory performed the technical component only. [...] characteristic determined by the Dermatopathology Laboratory at [facility]. These tests need not be, and therefore are not, approved by the [place] Food and Drug Administration. The tests are used for clinical purposes. 12:50 PM CDT DERMATOPATHOLOGY LABORATORY at 1250 CDT Pathology/Cytolog y TISSUE SPECIMEN FROM SKIN / Unknown 08/12/2018 08/14/2018 6:05 AM CDT us Tanja Han MD LAB - PATHOLOGY/CYTOLOGY ORD ERABLES Final Result DERMATOPATHOLOGY LABORATORY [facility] - Department of Dermatology [address] [facility], [address]th [place] [address], [facility] [phone] documented in this encounter Visit Diagnoses Not on filedocumented in this encounter
== END 2025-08-23 01:45 | disposition left against medical advice (07) ==
PROVIDERS: PCP Pediatrics
DX: R10.10 Upper abdominal pain, unspecified (principal)
CPT/HCPCS: 99199

== ENCOUNTER 2025-08-24 08:58 | Emergency (ER) | payer OTHER, SELFPAY ==
--- NOTE | ~2025-08-24 | CT_ITS ---
CT abdomen pelvis w con Clinical History: upper abd pain, diarrhea, nausea . Comparison: None Technique: Axial images lung bases to symphysis pubis IV contrast information not listed in PACS Coronal, sagittal reformats CT images acquired with automatic exposure control for dose reduction DLP: 635 mGy-cm Findings: Lung bases: Clear. Visualized heart and pericardium: Unremarkable. Liver: Unremarkable. Gallbladder: Unremarkable. Spleen: Unremarkable. Pancreas: Unremarkable. Adrenal glands: Unremarkable. Kidneys: Right kidney- No hydronephrosis. No renal stones. Left kidney- No hydronephrosis. No renal stones. Distal esophagus/stomach: Unremarkable. Small bowel loops: Wall thickening ileal loops. Colon: Diffuse wall thickening. Normal RLQ appendix. Nodes: Scattered small mesenteric and retroperitoneal nodes. Peritoneum: No ascites. No free air. Urinary bladder: Unremarkable. Uterus: Unremarkable. Adnexa: No masses. Small pelvic free fluid. Bones: No acute bony abnormality. Soft tissues: Small umbilical hernia with fat. Aorta: No aneurysm or dissection. IVC: Unremarkable. Main portal vein/SMV/splenic vein: Patent. IMPRESSION: 1. Enterocolitis, likely infectious and/or inflammatory. Reviewed, dictated and finalized at location R.
[2025-08-24 09:05] VITALS: BP 111/69; PULSE 64; RESP 20; TEMP 36.7; O2SAT 100
[2025-08-24 09:12] LABS: BEDSIDEPREGUCG Negative (Negative)
[2025-08-24 09:19] LABS: Add Urine Microscopic? NO; Appearance Urine Clear (Clear); Glucose Urine UA Negative (Negative); Leukocyte Esterase Ur Negative LEU/UL (Negative); Nitrate Urine Negative (Negative); Specific Grav Ur 1.021 (1.001-1.035)
--- NOTE | 2025-08-24 09:42 | ED_ITS ---
HPI - Nausea/Vomiting/Diarrhea General Chief complaint: Nausea/Vomiting/Diarrhea Stated complaint: diarrhea, abdominal pain x 2 weeks Time Seen by Provider: 08/24/25 09:02 Source: patient Mode of arrival: ambulatory Limitations: no limitations History of Present Illness HPI Narrative: Patient is a 24-year-old female who presents the ED with report of diarrhea, abdominal pain. Patient reports she has been having GI issues for the past 2 weeks. Was seen at an urgent care 2 weeks ago and advised to come to the ED if sx's worsened. Reports more persistent bright yellow diarrhea since Sunday, worsening pain/cramping in upper abdomen. Denies rectal bleeding or melena. Denies N/V, recent fevers, urinary complaints. Related Data Allergies Allergy/AdvReac Type Severity Reaction Status Date / Time Penicillins Allergy Mild Swelling Verified 08/24/25 10:23 Review of Systems 2 Review of Systems: All systems reviewed & are unremarkable except as noted in HPI. All systems reviewed & are unremarkable except as noted in HPI and below Exam 2 Narrative: GENERAL: Well appearing, obese with BMI of 33.7, non-toxic, in no acute distress. HEAD: Normocephalic, atraumatic. RESPIRATORY: Airway patent, respirations nonlabored. Clear to auscultation bilaterally, no rales, rhonchi, wheezing. CARDIOVASCULAR: Regular rate and rhythm without murmurs, rubs, or gallops. ABDOMINAL: Soft, mild diffuse tenderness in upper abdomen, LUQ, no rebound, nondistended. Normoactive BS. MUSCULOSKELETAL: Moves all extremities. No gross deformities. SKIN: Warm, dry, normal color. NEURO: A&O X3. Speech clear. Cranial nerves II-XII grossly intact. Steady gait. No ataxic movements. PSYCHIATRIC: Appropriate mood and affect. Normal interaction. Course Vital Signs Vital signs: Vital Signs Temperature 98.1 F 08/24/25 09:05 Pulse Rate 64 08/24/25 09:05 Respiratory Rate 20 08/24/25 09:05 Blood Pressure 111/69 08/24/25 09:05 Pulse Oximetry 100 08/24/25 09:05 Oxygen Delivery Room Air 08/24/25 09:05 Temperature 98.1 F 08/24/25 09:05 Pulse Rate 56 L 08/24/25 10:24 Respiratory Rate 15 08/24/25 10:24 Blood Pressure 106/63 08/24/25 10:24 Pulse Oximetry 100 08/24/25 10:24 Oxygen Delivery Room Air 08/24/25 09:05 MDM - Nausea/Vomiting/Diarrhea MDM Narrative Medical decision making narrative: Patient presented to ED with upper abdominal pain, diarrhea, worsening over the past 5 days. Vital signs stable upon arrival. Patient is afebrile here. Laboratory studies without leukocytosis or anemia. Stable electrolytes. Stable kidney function. UA is clear. No signs of infection. Urine is negative. CT scan of abdomen/pelvis was obtained and showing evidence of enterocolitis, likely infectious versus inflammatory. Given prolonged nature of symptoms, will treat as infectious etiology. Discussed this with patient. She is in agreement with starting antibiotics. Will also prescribe Bentyl for abdominal discomfort. Feel she is otherwise safe for discharge home at this time. Discussed dietary modifications, strict return precautions. Recommended follow-up with PCP. Discharged in stable condition. Medical Records Attestation: I reviewed the patient's medical records. Lab Data Attestation: I reviewed the patient's lab results. 08/24/25 10:10 08/24/25 10:10 Labs: Lab Results 08/24/25 08/24/25 Range/Units 09:10 10:10 WBC 6.7 (4.5-10.0) K/mm3 RBC 4.87 (4.2-5.4) M/mm3 Hgb 13.9 (12.0-15.0) g/dL Hct 43.4 (37.0-47.0) % MCV 89.1 (80-100) fl MCH 28.5 (26-34) pg MCHC 32.0 (32-36) g/dl RDW 13.2 (11.5-14.5) % Plt Count 327 (150-375) k/mm3 MPV 9.8 (7.4-10.4) fl Immature Gran % (Auto) 0.3 (0-0.5) % Neut % (Auto) 56.6 (45.5-73.1) % Lymph % (Auto) 33.1 (18.3-44.2) % [place] % (Auto) 8.1 (2.6-8.5) % Eos % (Auto) 1.6 (0-4.4) % Baso % (Auto) 0.3 (0.2-1.2) % Lymph # (Auto) 2.22 (0.9-3.2) K/mm3 [place] # (Auto) 0.5 (0.1-0.6) K/mm3 Eos # (Auto) 0.1 (0-0.3) K/mm3 Baso # (Auto) 0.0 (0.0-0.1) K/mm3 Abs Immat Gran (auto) 0.02 (0.00-0.031) K/mm3 Absolute Neuts (auto) 3.8 (1.3-6.7) K/mm3 Absolute Nucleated RBC 0.000 (0.0-0.012) K/mm3 Nucleated RBC % 0.0 (0.0-0.2) % Sodium 136 L (137-145) mmol/L Potassium 4.1 (3.4-5.0) mmol/L Chloride 106 (98-107) mmol/L Carbon Dioxide 25 (22-30) mmol/L Anion Gap 5 (4-12) mmol/L BUN 10 (7-17) mg/dL Creatinine 0.76 (0.7-1.0) mg/dL Estim Creat Clear Calc 100 ml/min Estimated GFR > 60 (59 - ) Glucose 96 (65-110) mg/dL Calcium 8.7 (8.4-10.2) mg/dL Total Bilirubin 0.3 (0.2-1.3) mg/dL AST 27 (14-36) U/L ALT 15 (6-35) U/L Alkaline Phosphatase 54 (38-126) U/L Total Protein 6.8 (6.3-8.2) g/dL Albumin 3.9 (3.5-5.1) g/dL Lipase 41 (23-300) U/L Urine Color Yellow (Yellow) Urine Appearance Clear (Clear) Urine pH 5.5 (5.0-9.0) Ur Specific [place] 1.021 (1.001-1.035) Urine Protein Negative (Negative) mg/dL Urine Glucose (UA) Negative (Negative) mg/dL Urine Ketones Negative (Negative) mg/dL Ur Blood (Man) Negative (Negative) Urine Nitrate Negative (Negative) Urine Bilirubin Negative (Negative) Urine Urobilinogen 0.2 (<2.0) mg/dL Leukocyte Esterase Rfl Negative (Negative) BAN/UL POC Urine HCG, Qual Negative (Negative) Imaging Data Attestation: I personally reviewed and interpreted this imaging study as follows: Radiologist's impression: ITS Impressions Abdomen/Pelvis CT 08/24/25 11:04 IMPRESSION: 1. Enterocolitis, likely infectious and/or inflammatory. Discharge Plan Discharge Clinical Impression: Enterocolitis Patient Disposition: Home Condition: Stable Instructions: Antibiotic Form, Dehydration (ED), Colitis (ED), Enteritis (ED) Additional Instructions: Take antibiotics as prescribed. Recommend Tylenol, Bentyl as needed for further abdominal discomfort. Stay well hydrated. Increase fluid intake. Recommend electrolyte rich fluids, gatorade, pedialyte, body armour. Recommend clear liquids or bland diet until symptoms improve, such as soups/broths, chicken, bananas, rice, applesauce, toast, or crackers. Follow up with your primary care doctor for further evaluation. Return to the ED if you experience worsening or severe symptoms, unable to keep down food or drink, severe pain, fevers, rectal bleeding, vomiting blood, or any other symptoms of concern. Patient Language: Japanese Prescriptions: New metronidazole 500 mg tablet 500 mg PO Q8H 7 Days Qty: 21 0RF ciprofloxacin HCl 500 mg tablet 500 mg PO Q12H 7 Days Qty: 14 0RF dicyclomine 20 mg tablet 20 mg PO TID PRN (Reason: Abdominal Discomfort) Qty: 15 0RF Follow-up/Referrals: Amber Dc DO [Physician, Family Practice] Referral Note: PRIMARY CARE PHYSICIAN,MACHINE TANK OPERATOR [Primary Care Provider, Internal Medicine] Time of Disposition: 11:49
[2025-08-24 09:46] VITALS: BP 101/64; PULSE 58; RESP 14; O2SAT 99
[2025-08-24 10:18] LABS: Hematocrit 43.4 % (37.0-47.0); Hemoglobin 13.9 g/dL (12.0-15.0); Immature Granulocyte Percent A 0.3 % (0-0.5); Lymphocytes Absolute Auto 2.22 K/mm3 (0.9-3.2); Mean Corpuscular HGB Conc 32.0 g/dl (32-36); Mean Corpuscular Hemoglobin 28.5 pg (26-34); Mean Corpuscular Volume 89.1 fl (80-100); Nucleated Red Blood Cells Absolute Auto 0.000 K/mm3 (0.0-0.012); Nucleated Red Blood Cells Perc 0.0 % (0.0-0.2); Platelet Count Result 327 k/mm3 (150-375); Red Blood Count 4.87 M/mm3 (4.2-5.4); White Blood Count 6.7 K/mm3 (4.5-10.0)
[2025-08-24 10:24] VITALS: BP 106/63; PULSE 56; RESP 15; O2SAT 100
[2025-08-24] MEDS: SODIUM CHLORIDE 0.9% IV 1,000 ML 999 ML IV CONT (10:24)
[2025-08-24 10:45] LABS: Alanine Aminotransferase 15 U/L (6-35); Albumin Level 3.9 g/dL (3.5-5.1); Alkaline Phosphatase 54 U/L (38-126); Anion Gap 5 mmol/L (4-12); Aspartate Amino Transferase 27 U/L (14-36); Bilirubin,Total 0.3 mg/dL (0.2-1.3); Blood Urea Nitrogen 10 mg/dL (7-17); Calcium 8.7 mg/dL (8.4-10.2); Carbon Dioxide 25 mmol/L (22-30); Chloride 106 mmol/L (98-107); Estimated CRCL calculation 100 ml/min; Estimated Glomerular Filt Rate > 60; Glucose 96 mg/dL (65-110); Lipase 41 U/L (23-300); Potassium 4.1 mmol/L (3.4-5.0); Sodium 136 mmol/L (137-145); Total Protein 6.8 g/dL (6.3-8.2)
--- OUTSIDE RECORDS SUMMARY | 2025-08-24 10:52 | XMS_ITS | Clinical Summary ---
Author Organization [address] [address] Care Team Providers Care Traffic Agent Name Role Phone Unknown, Notinfile Primary Care Provider Unavail able Allergies Active Allergy Reactions Criticality Noted Date Comments Penicillins Unknown 02/08/2024 Medications No known medications Active Problems No known active problems Encounters Date Type Department Care Team Description 08/11/2025 3:45 PM CDT Office Visit [facility] at [address] [address] Rosamaria Rivera NP Dizziness (Primary [...] 01/21/2007, 04/07/2003, Additional history exists Covid-19 Vaccine (3 - 2024-2 6 season) 2025 02/26/2021, 02/04/2021 Influenza Vaccine [...] HCG, ur, POC Negative Negative Lot Number [id number] QC Backgroud Clear Acceptable QC Control Line Acceptable Urine 08/11/2025 4:31 PM CDT Rosamaria Rivera NP POINT OF CARE TEST ORDERABLES Final Result from Last 3 Months Insurance [facility] Care Teams Traffic Agent Relationship Specialty Start Date End Date Unknown, Notinfile PCP - General 08/11/25
--- OUTSIDE RECORDS SUMMARY | 2025-08-24 10:52 | XMS_ITS | Clinical Summary ---
Author Organization [facility] Address [address] [place] [address] Care Team Providers Care Farm Crew Member Name Role Phone Unavailable Primary Care Provider Unavailabl e Source Comments [facility],non-owned Affiliates and Associated Physician Practices is amultiple site organization consisting of ambulatory clinics and hospital sitesin [place], [place], [place] and [place]. This disclosure is being madepursuant to the Care Everywhere program and may not contain all information available regarding this patient. Last updated 18.[facility] Wantful Allergies Active Allergy Reactions Criticality Noted Date [...]
--- OUTSIDE RECORDS SUMMARY | 2025-08-24 10:52 | XMS_ITS | Encounter Summary ---
Author Organization [facility] Address [address] [place] [address] Care Team Providers Care Decal Applier Name Role Phone Unavailable Primary Care Provider Unavailabl e Encounter Details Date Type Department Care Team (Late st Contact Info) Description 08/14/2018 Lab Requisition [facility] [address] [place] [address] Tanja Han MD [address] [place] [address] Social History Tobacco Use Types Packs/Day Years [...] AM CDT) Case Report Dermatopathology Report Case: [id number] Authorizing Provider: Tanja Han MD Collected: 08/12/2018 [...] The specimen consists of a shave measuring [id number]. The margin is inked green. Jar 0. [facility] Dermatopathology Laboratory performed the technical component only. [...] characteristic determined by the Dermatopathology Laboratory at [facility]. These tests need not be, and therefore are not, approved by the [place] Food and Drug Administration. The tests are used for clinical purposes. 12:50 PM CDT DERMATOPATHOLOGY LABORATORY at 1250 CDT Pathology/Cytolog y TISSUE SPECIMEN FROM SKIN / Unknown 08/12/2018 08/14/2018 6:05 AM CDT us Tanja Han MD LAB - PATHOLOGY/CYTOLOGY ORD ERABLES Final Result DERMATOPATHOLOGY LABORATORY [facility] - Department of Dermatology [address] [place] [address], [facility] [phone] documented in this encounter Visit Diagnoses Not on filedocumented in this encounter
== END 2025-08-24 12:00 | disposition home or self-care (01) ==
PROVIDERS: Emergency Medicine; Emergency Provider Physician Assistant
DX: K52.9 Noninfective gastroenteritis and colitis, unspecified (principal)
CPT/HCPCS: 36415; 74177; 80053; 81003; 81025; 83690; 85025; 96360; 99284; J7030; Q9967